=== PATIENT | female | born 1995 | race Two or more races ===

== ENCOUNTER 2024-02-08 18:34 | Emergency (ER) | payer OTHER ==
[~2024-02-08] VITALS: Ht 157.5 cm; Wt 62.6 kg
[2024-02-08] MEDS ORDERED: DEXAMETHASONE SODIUM PHOSPHATE 4 MG/ML VIAL IM STA (20:07)
[2024-02-08] MEDS ORDERED: ORPHENADRINE CITRATE 30 MG/ML AMPUL IM STA (20:08)
[2024-02-08] MEDS ORDERED: ORPHENADRINE CITRATE 30 MG/ML AMPUL ONE (20:22)
[2024-02-08] MEDS ORDERED: DEXAMETHASONE SODIUM PHOSPHATE 4 MG/ML VIAL ONE (20:22)
== END 2024-02-08 20:27 | disposition home or self-care (01) ==
LOC: ER 18:35
DX: M79.18 Myalgia, other site (principal); Z91.018 Allergy to other foods